=== PATIENT | female | born 1960 | race Two or more races ===

== ENCOUNTER 2016-11-21 11:34 | Emergency (ER) | payer MEDICAID ==
[~2016-11-21] VITALS: Ht 165.1 cm; Wt 74.4 kg
[~2016-11-21 11:34] MED LIST: ASPI-492 PO; CAR3125T PO; DOCU-94 PO; HYDR-4663 PO; IMI25T PO; LIS10T PO; METF500T PO; SIMV10TA73 PO; SULF1TAB60 PO
[2016-11-21 12:53] VITALS: BP 143/71
== END 2016-11-21 13:44 | disposition home or self-care (01) ==
LOC: ER 11:34
DX: S80.02XA Contusion of left knee, initial encounter (principal); I10 Essential (primary) hypertension; E11.9 Type 2 diabetes mellitus without complications; E78.5 Hyperlipidemia, unspecified; Z95.1 Presence of aortocoronary bypass graft; Z79.82 Long term (current) use of aspirin; W19.XXXA Unspecified fall, initial encounter; Y93.89 Activity, other specified; Y99.8 Other external cause status; Y92.89 Other specified places as the place of occurrence of the external cause
CPT/HCPCS: 73562

== ENCOUNTER 2017-06-26 17:58 | Inpatient (IN) | payer MEDICAID ==
[~2017-06-26] VITALS: Ht 165.1 cm; Wt 77.9 kg
[~2017-06-26 17:58] MED LIST changes: -HYDR-4663 PO; +HYDR-4683 PO
[2017-06-26] MEDS ORDERED: SODIUM CHLORIDE 0.9% 1,000 ML IV ONE ×2 (18:28→20:22)
[2017-06-26 19:23] LABS: Basophils # (auto) 0 uL; Basophils % (auto) 0.1 % (0.0-2.0); Eosinophils # (auto) 0 uL; Hematocrit 28.9 % (36.0-46.0); Hemoglobin 9.7 g/dL (12.2-16.2); Lymphocytes # (auto) 0.8 uL; Lymphocytes % (auto) 6.8 % (10.0-50.0); Mean Corpuscular Hemoglobin 31.6 pg (28.0-32.0); Mean Corpuscular Hgb Conc. 33.6 g/dL (32.0-36.0); Mean Corpuscular Volume 94.1 fL (80.0-100.0); Monocytes # (auto) 0.5 uL; Monocytes % (auto) 4.3 % (0.0-12.0); Neutrophils # (auto) 10.3 uL; Neutrophils % (auto) 88.8 % (37.0-80.0); Platelet Count (auto) 217 10^3/uL (140-450); Red Blood Cells 3.07 10^6/uL (4.0-5.20); Red Cell Distribution Width 13.2 % (11.8-14.3); White Blood Cell 11.6 10^3/uL (4.4-10.8)
[2017-06-26 19:39] LABS: Albumin 2.6 g/dL (3.4-5.0); BUN/Creatinine Ratio 14.7; Calcium 8.2 mg/dL (8.5-10.1); Magnesium 2.2 mg/dL (1.6-2.6)
[2017-06-26 19:52] LABS: Potassium 5.8 mmol/L (3.5-5.1)
[2017-06-26 20:01] LABS: Bilirubin, Total 1.1 mg/dL (0.2-1.0); Total Protein 6.9 g/dL (6.4-8.2)
[2017-06-26] MEDS ORDERED: ALBUTEROL SULF 2.5 MG/0.5ML(0.5%) NEB SOLN NEB STA (20:22)
[2017-06-26] MEDS ORDERED: SODIUM BICARBONATE 8.4% INJ 50ML SYRINGE IV ONE (20:30)
[2017-06-26] MEDS ORDERED: InsuLIN REG 1unit/0.01ml Soln (100units/ml) IV ONE ×2 (20:30)
[2017-06-26] MEDS ORDERED: SODIUM POLYSTYRENE SULF 15GM/60ML SUSP PO ONE (20:30)
[2017-06-26] MEDS ORDERED: CALCIUM GLUC 4.65meq/50ml D5AE 50 ML IV ONE (20:30)
[2017-06-26] MEDS ORDERED: ENOXAPARIN SOD 80 MG/0.8ML SYRINGE SC ONE (20:30)
[2017-06-26] MEDS ORDERED: DEXTROSE (50%) 50ML SYRG IV ONE (20:30)
[2017-06-27] MEDS ORDERED: ACETAMINOPHEN 325 MG TAB PO PRN (00:45)
[2017-06-27] MEDS ORDERED: DEXTROSE (50%) 50ML SYRG IV PRN (00:45)
[2017-06-27] MEDS ORDERED: ONDANSETRON HCL 4 MG/2 ML VIAL IV PRN (00:45)
[2017-06-27] MEDS ORDERED: HYDROcodone-ACET 5/325MG TAB PO PRN (00:45)
[2017-06-27] MEDS ORDERED: MORPHINE SULFATE 10 MG/ML INJ 1ML SDV IV PRN (00:45)
[2017-06-27] MEDS ORDERED: NITROGLYCERIN 0.4 MG SL TAB SL PRN (00:45)
[2017-06-27] MEDS ORDERED: ALBUMIN 5% 250 ML IV ONE (00:45)
[2017-06-27] MEDS ORDERED: TEMAZEPAM 15 MG CAP PO PRN (00:45)
[2017-06-27] MEDS ORDERED: SODIUM CHLORIDE 0.9% 1,000 ML IV SCH (00:45)
[2017-06-27] MEDS: InsuLIN REG 1unit/0.01ml Soln (100units/ml) SC SCH ×3 (06:08→18:10)
[2017-06-27] MEDS: ACCU-CHEK COMFORT CURVE STRIP VI SCH ×3 (06:08→18:10)
[2017-06-27] MEDS ORDERED: IOHEXOL 350 MG/ML 100ML IJ ONE (09:33)
[2017-06-27] MEDS ORDERED: LIDOCAINE 2%HCL (LOCAL ANESTH.) INJ 20ML MDV ONE (09:33)
[2017-06-27] MEDS ORDERED: diphenhdrAMINE HCL 50 MG/1 ML VL IV ONE (09:45)
[2017-06-27] MEDS: CARVEDILOL 3.125 MG TAB PO SCH ×3 (10:00→21:57)
[2017-06-27] MEDS: ASPirin 81 mg TAB PO SCH (10:00)
[2017-06-27] MEDS: PANTOPRAZOLE 40 MG TAB PO SCH (10:00)
[2017-06-27] MEDS ORDERED: SODIUM BICARBONATE 50ML VIAL 150 ML in SOD CHL 0.45% 1,000 ML IV ONE (10:15)
[2017-06-27] MEDS ORDERED: IODIXANOL 320MG/ML 100ML BTL IV ONE (10:59)
[2017-06-27] MEDS ORDERED: fentaNYL CITRATE 100 MCG/2 ML VL ONE (11:00)
[2017-06-27] MEDS ORDERED: MIDAZOLAM HCL 1MG/1ML-2 ML VIAL ONE (11:01)
[2017-06-27 14:16] LABS: BUN/Creatinine Ratio 25.4; Calcium 7.6 mg/dL (8.5-10.1); Potassium 3.3 mmol/L (3.5-5.1)
[2017-06-27 17:11] VITALS: BP 139/74
[2017-06-27] MEDS ORDERED: ENOXAPARIN SOD 80 MG/0.8ML SYRINGE SC SCH (21:00)
[2017-06-27] MEDS ORDERED: PRAVASTATIN SODIUM 20 MG TAB PO SCH (22:00)
[2017-06-28] MEDS: ACCU-CHEK COMFORT CURVE STRIP VI SCH ×3 (00:25→11:32)
[2017-06-28 04:55] VITALS: BP 127/57
[2017-06-28] MEDS: InsuLIN REG 1unit/0.01ml Soln (100units/ml) SC SCH ×3 (06:00→12:08)
[2017-06-28 06:12] LABS: Basophils # (auto) 0 uL; Basophils % (auto) 0.2 % (0.0-2.0); Eosinophils # (auto) 0 uL; Hematocrit 28.6 % (36.0-46.0); Hemoglobin 9.8 g/dL (12.2-16.2); Lymphocytes # (auto) 0.6 uL; Lymphocytes % (auto) 6.3 % (10.0-50.0); Mean Corpuscular Hgb Conc. 34.4 g/dL (32.0-36.0); Monocytes # (auto) 0.9 uL; Monocytes % (auto) 9.3 % (0.0-12.0); Neutrophils # (auto) 8.3 uL; Neutrophils % (auto) 84.2 % (37.0-80.0); Nucleated Red Blood Cells % 0.1 %; Platelet Count (auto) 218 10^3/uL (140-450); Red Blood Cells 3.08 10^6/uL (4.0-5.20); Red Cell Distribution Width 13.4 % (11.8-14.3); White Blood Cell 9.9 10^3/uL (4.4-10.8)
[2017-06-28 06:23] LABS: Albumin 2.7 g/dL (3.4-5.0); BUN/Creatinine Ratio 26.8; Calcium 8.1 mg/dL (8.5-10.1); Potassium 3.4 mmol/L (3.5-5.1)
[2017-06-28 06:26] LABS: Bilirubin, Total 0.6 mg/dL (0.2-1.0); Total Protein 6.7 g/dL (6.4-8.2)
[2017-06-28 08:00] VITALS: BP 108/59
[2017-06-28 08:34] VITALS: BP 108/59
[2017-06-28] MEDS: ASPirin 81 mg TAB PO SCH (09:58)
[2017-06-28] MEDS: PANTOPRAZOLE 40 MG TAB PO SCH (09:58)
[2017-06-28] MEDS: CARVEDILOL 3.125 MG TAB PO SCH (09:58)
[2017-06-28 10:11] VITALS: BP 108/59
[2017-06-28 13:06] VITALS: BP 108/63
== END 2017-06-28 15:35 | disposition home or self-care (01) | DRG 190 ==
LOC: ER 18:03 → TELE 18:04 → TELE-CENTR 06-27 08:31
PROVIDERS: ADMIT Nurse Practitioner; ATTEND Internal Medicine
PROC: 4A023N7 Measurement of Cardiac Sampling and Pressure, Left Heart, Percutaneous Approach (ICD-10-PCS; principal; 2017-06-27)
PROC: B2111ZZ Fluoroscopy of Multiple Coronary Arteries using Low Osmolar Contrast (ICD-10-PCS; 2017-06-27)
PROC: B2121ZZ Fluoroscopy of Single Coronary Artery Bypass Graft using Low Osmolar Contrast (ICD-10-PCS; 2017-06-27)
DX: I21.4 Non-ST elevation (NSTEMI) myocardial infarction (principal); I50.31 Acute diastolic (congestive) heart failure; E43 Unspecified severe protein-calorie malnutrition; N17.9 Acute kidney failure, unspecified; E87.2 Acidosis; N18.4 Chronic kidney disease, stage 4 (severe); E11.22 Type 2 diabetes mellitus with diabetic chronic kidney disease; I13.0 Hypertensive heart and chronic kidney disease with heart failure and stage 1 through stage 4 chronic kidney disease, or unspecified chronic kidney disease; E78.5 Hyperlipidemia, unspecified; I25.10 Atherosclerotic heart disease of native coronary artery without angina pectoris; I25.2 Old myocardial infarction; Z79.4 Long term (current) use of insulin; Z79.899 Other long term (current) drug therapy; Z82.49 Family history of ischemic heart disease and other diseases of the circulatory system; Z90.710 Acquired absence of both cervix and uterus; Z95.1 Presence of aortocoronary bypass graft
CPT/HCPCS: 36415; 71045; 80048; 80053; 82962; 83036; 83735; 84132; 84484; 85025; 93005; 93306; 93459; 94640; 96361; 96365; 99152; J0610; J1815; J2250; Q9967

== ENCOUNTER 2017-07-01 20:15 | Emergency (ER) | payer MEDICAID ==
[~2017-07-01] VITALS: Ht 165.1 cm; Wt 70.3 kg
[~2017-07-01 20:15] MED LIST changes: -HYDR-4683 PO; -LIS10T PO; -SULF1TAB60 PO
[2017-07-01] MEDS ORDERED: IOHEXOL 350 MG/ML 100ML IJ ONE (21:20)
[2017-07-01 21:33] LABS: Albumin 2.3 g/dL (3.4-5.0); BUN/Creatinine Ratio 24.1; Basophils # (auto) 0 uL; Basophils % (auto) 0.1 % (0.0-2.0); Calcium 8.1 mg/dL (8.5-10.1); Eosinophils # (auto) 0 uL; Hematocrit 28.1 % (36.0-46.0); Hemoglobin 9.4 g/dL (12.2-16.2); Lymphocytes # (auto) 0.7 uL; Lymphocytes % (auto) 3.5 % (10.0-50.0); Mean Corpuscular Hemoglobin 31.1 pg (28.0-32.0); Mean Corpuscular Hgb Conc. 33.5 g/dL (32.0-36.0); Mean Corpuscular Volume 92.6 fL (80.0-100.0); Monocytes # (auto) 1.1 uL; Monocytes % (auto) 5.2 % (0.0-12.0); Neutrophils # (auto) 18.8 uL; Neutrophils % (auto) 91.2 % (37.0-80.0); Platelet Count (auto) 202 10^3/uL (140-450); Potassium 3.6 mmol/L (3.5-5.1); Red Blood Cells 3.04 10^6/uL (4.0-5.20); Red Cell Distribution Width 13.8 % (11.8-14.3); White Blood Cell 20.7 10^3/uL (4.4-10.8)
[2017-07-01 21:41] LABS: INR 1.09 (0.9-1.15); Partial Thromboplastin Time 28.2 sec (22.64-33.71); Prothrombin Time 11.9 sec (9.37-12.3)
[2017-07-01 21:46] LABS: Bilirubin, Total 0.5 mg/dL (0.2-1.0); Total Protein 6.7 g/dL (6.4-8.2)
[2017-07-01] MEDS ORDERED: cefTRIAXone 1GM/10ml IVPUSH 10 ML IV ONE (22:00)
[2017-07-01] MEDS ORDERED: ENOXAPARIN SOD 80 MG/0.8ML SYRINGE SC ONE (23:00)
[2017-07-01 23:37] LABS: Lactic Acid w/Reflex 2.3 mmol/L (0.4-2.0)
[2017-07-01] MEDS ORDERED: SODIUM CHLORIDE 0.9% 1,000 ML IV ONE (23:45)
[2017-07-02 00:02] VITALS: BP 104/62
== END 2017-07-02 00:22 | disposition short-term general hospital (02) ==
LOC: EDBD 20:15 → ER 20:19
DX: I74.09 Other arterial embolism and thrombosis of abdominal aorta (principal); I21.4 Non-ST elevation (NSTEMI) myocardial infarction; I10 Essential (primary) hypertension; E11.9 Type 2 diabetes mellitus without complications; D64.9 Anemia, unspecified; I25.2 Old myocardial infarction; Z95.1 Presence of aortocoronary bypass graft; Z90.710 Acquired absence of both cervix and uterus; Z79.82 Long term (current) use of aspirin
CPT/HCPCS: 36415; 51702; 71045; 80053; 83605; 84484; 85025; 85379; 85610; 85730; 87040; 93005; 93926; 96372; 96374; 99285; J1650; J7030; 96361